=== PATIENT | female | born 1965 | race Caucasian/White ===

== ENCOUNTER → 2016-12-12 | Outpatient (CLI) | payer BC ==
[~2016-12-12] MED LIST: ATV5 PO; BCPILLS PO; CRG40 PO; LRT5 PO; OPTIRAY 320 IV PRN
--- NOTE | 2016-12-12 08:08 | DIAGNOSTIC IMAGING REPORT ---
ADDENDUM Addendum: Outside reports from an MR angiography performed at [address] [place] [address] January 11, 2011 have become available for review. The intracranial stenotic lesions described on the outside report are not visualized the current CT angiography. Electronically signed by: Andrei Serrano M.D. 12/12/2016 9:09 AM Dictated Date/Time: 12/12/2016 9:[address] HEAD ANGIO WITH CONTRAST CLINICAL HISTORY: Abnormal brain scan. Reportedly abnormal MR angiography of the head. TECHNIQUE: CT angiography of the head was performed in a dynamic helical fashion during intravenous administration of 92 cc of Optiray 320. MIP imaging was performed. CT DOSE: 106.70 mGy.cm COMPARISON STUDY: No previous studies for comparison. 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 No additional aneurysms are visualized. There is no evidence of major intracranial branch occlusion. There is no evidence of intracranial stenosis. The dural venous sinuses appear patent. IMPRESSION: 1. 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 Prior outside studies were unavailable for review at the time of this interpretation. If these become available, an addendum can be issued. Electronically signed by: Andrei Serrano M.D. 12/12/2016 8:06 AM Dictated Date/Time: 12/12/2016 7:56 AM
== END | disposition home or self-care (01) ==
LOC: C.CTS 07:31
PROVIDERS: ATTEND Psychiatry & Neurology Neurology
DX: R93.0 Abnormal findings on diagnostic imaging of skull and head, not elsewhere classified (principal); R94.02 Abnormal brain scan; I67.1 Cerebral aneurysm, nonruptured

== ENCOUNTER → 2017-01-04 | Outpatient (CLI) | payer BC ==
[~2017-01-04] MED LIST changes: +MAGNEVIST IV PRN; -OPTIRAY 320 IV PRN
--- NOTE | 2017-01-04 12:08 | DIAGNOSTIC IMAGING REPORT ---
NECK MRA HISTORY: Aneurysm ABN MRA OF NECK TECHNIQUE: Hwso-go-zfwxve and gadolinium-enhanced MRA of the neck was performed both before and after the intravenous administration of contrast. All measurements were calculated based on NASCET criteria. COMPARISON STUDY: None. FINDINGS: The aortic arch and proximal great vessels are widely patent. There is no significant stenosis, occlusion, or dissection identified within the bilateral common carotid, internal carotid, or vertebral arteries. IMPRESSION: No significant stenosis, occlusion, or dissection identified within the carotid or vertebral arteries. The aneurysm previously described subclinoid aspect of the distal left internal carotid artery was not visible as that area was not specifically scanned Electronically signed by: Wally Bourgeois M.D. 01/04/2017 12:06 PM Dictated Date/Time: 01/04/2017 12:00 PM
== END | disposition home or self-care (01) ==
LOC: C.MRIBC 10:54
PROVIDERS: ATTEND Psychiatry & Neurology Neurology
DX: R93.8 Abnormal findings on diagnostic imaging of other specified body structures (principal)